=== PATIENT | female | born 1990 ===

== ENCOUNTER 2022-09-26 19:05 | Emergency (ER) | payer SELFPAY ==
[2022-09-26 19:56] LABS: Absolute Lymphocytes (CBC) 0.8 K/uL (0.7-4.9); Hematocrit 40.1 % (36.0-45.0); Lymphocytes % 9.5 % (15.3-44.8); MCV 82.8 fL (80-100); RBC Red Blood Cell Count 4.84 M/uL (3.86-4.86)
[2022-09-26 20:16] LABS: Albumin 4.5 g/dL (3.4-5.0); Bilirubin Total 1.3 mg/dL (0.2-1.0); Potassium 3.4 mEq/L (3.5-5.1); Protein, Total 8.8 g/dL (6.4-8.2); Thyroid Stimulating Hormone 3.46 uIU/mL (0.358-3.740)
[2022-09-26] MEDS ORDERED: NA CHLORIDE 0.9% 1,000 ML ONE ×2 (20:24→20:47)
[2022-09-26] MEDS ORDERED: PROPRANOLOL HCL 40 MG TAB ONE (21:03)
--- NOTE | 2022-09-26 22:11 | ER ---
Nurse's Notes [facility] Name: Viviana Mancilla Age: 32 yrs Sex: Female : 1990 Arrival Date: 09/26/2022 Time: 19:05 Bed 19 Private MD: Diagnosis: Dehydration;Adverse effect of other psychotropic drugs;Other stimulant abuse with stimulant-induced anxiety disorder Presentation: 09/26 19:07 Chief complaint: Patient states: Chest pain, started yesterday with numbness and jw7 tingling to left arm. pt admits to doing cocaine last night and is worried it was laced with fentanyl. Coronavirus screen: At this time, the client does not indicate any symptoms associated with coronavirus-19. Ebola Screen: No symptoms or risks identified at this time. Initial Sepsis Screen: Does the patient meet any 2 criteria? RR > 20 per min. HR > 90 bpm. Does the patient have a suspected source of infection? No. Patient's initial sepsis screen is negative. Initial Sepsis Screen: Does the patient meet any 2 criteria?. Risk Assessment: Do you want to hurt yourself or someone else? Patient reports no desire to harm self or others. Onset of symptoms was September 25, 2022. 19:07 Method Of Arrival: Wheelchair jw7 19:07 Acuity: TRAM 2 jw7 Triage Assessment: 19:10 General: Appears distressed, Behavior is anxious, restless. Pain: Complains of pain in as6 chest. Cardiovascular: Rhythm is sinus tachycardia. Respiratory: Respiratory pattern is hyperventilation. 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 - Social history:: Smoking status: Patient/guardian denies using tobacco, Patient uses street drugs, cocaine. Screenin:50 [facility] ED Fall Risk Assessment (Adult) History of falling in the last 3 months, ha1 including since admission No falls in past 3 months (0 pts) Confusion or Disorientation No (0 pts) Intoxicated or Sedated No (0 pts) Impaired Gait No (0 pts) Mobility Assist Device Used No (0 pt) Altered Elimination No (0 pt) Score/Fall Risk Level 0 - 2 = Low Risk Oriented to surroundings, Maintained a safe environment, Educated pt \T\ family on fall prevention, incl call for assistance when getting out of bed, Hourly rounding (assess needs \T\ fall precautionary measures) done. Abuse screen: Denies threats or abuse. Denies injuries from another. Nutritional screening: No deficits noted. Tuberculosis screening: No symptoms or risk factors identified. Assessment: 19:37 General: Appears uncomfortable, Behavior is cooperative, anxious. Pain: Complains of ha1 pain in chest Pain does not radiate. Pain currently is 5 out of 10 on a pain scale. Quality of pain is described as pressure, Pain began 2 hours ago. Neuro: Level of Consciousness is awake, alert, obeys commands, Oriented to person, place, time, situation. Cardiovascular: Reports palpitations, Heart tones S1 S2 present Patient's skin is warm and dry. Rhythm is sinus tachycardia. Respiratory: Airway is patent Respiratory effort is even, unlabored, Respiratory pattern is regular, symmetrical. GI: No signs and/or symptoms were reported involving the gastrointestinal system. : No signs and/or symptoms were reported regarding the genitourinary system. Musculoskeletal: Circulation, motion, and sensation intact. Range of motion: intact in all extremities. 20:35 Reassessment: Patient and/or family updated on plan of care and expected duration. Pain ha1 level reassessed. Patient is alert, oriented x 3, equal unlabored respirations, skin warm/dry/pink. 21:35 Reassessment: Patient and/or family updated on plan of care and expected duration. Pain ha1 level reassessed. Patient is alert, oriented x 3, equal unlabored respirations, skin warm/dry/pink. Vital Signs: 19:07 BP 156 / 105; Pulse 126; Resp 24 S; Temp 97.7; Pulse Ox 100% on R/A; Weight 58.06 kg; jw7 Height 5 ft. 2 in. ; Pain 9/10; 19:50 BP 140 / 85; Pulse 110; Resp 20 S; Pulse Ox 100% on R/A; ha1 20:29 BP 133 / 87; Pulse 107; Resp 18 S; Pulse Ox 95% on R/A; ha1 21:23 BP 144 / 92; Pulse 93; Resp 18 S; Pulse Ox 100% on R/A; ha1 19:07 Body Mass Index 23.41 (58.06 kg, 157.48 cm) jw7 19:07 Pain Scale: Adult jw7 ED Course: 19:06 Patient arrived in ED. am2 19:14 Triage completed. jw7 19:16 Prisc[facility] Armstrong [facility]-C [facility]. snw 19:16 Yordan Harry MD is Attending Physician. snw 19:42 No provider procedures requiring assistance completed. Inserted saline lock: 20 gauge pf1 in left antecubital area, using aseptic technique. Blood collected. 19:46 TSH Sent. pf1 19:46 CMP Sent. pf1 19:46 CBC with Diff Sent. pf1 19:49 Arm band placed on. as6 19:50 Patient maintains SpO2 saturation greater than 95% on room air. ha1 19:50 Patient has correct armband on for positive identification. Placed in gown. Bed in low ha1 position. Call light in reach. Side rails up X 1. Adult w/ patient. 19:50 Client placed on continuous cardiac and pulse oximetry monitoring. NIBP monitoring ha1 applied. 20:00 Door closed. Warm blanket given. Pillow given. ha1 21:08 Eloisa Owens, RN is Primary Nurse. ha1 22:39 IV discontinued, intact, bleeding controlled, No redness/swelling at site. Pressure pf1 dressing applied. 22:40 Provided Education on: medication . pf1 Administered Medications: 20:20 Drug: NS 0.9% IV 1000 ml Route: IV; Rate: 1 bolus; Site: left antecubital; ha1 20:44 Drug: NS 0.9% IV 1000 ml Route: IV; Rate: 1 bolus; Site: left antecubital; ha1 20:50 Drug: Propranolol PO 40 mg Route: PO; ha1 22:13 Drug: Diazepam IVP 5 mg Route: IVP; Site: left antecubital; ha1 Medication: 21:48 VIS not applicable for this client. ha1 Outcome: 22:11 Discharge ordered by . snw 22:39 Discharged to home ambulatory, with family. pf1 22:39 Condition: improved 22:39 Discharge instructions given to patient, family, Instructed on discharge instructions, follow up and referral plans. Demonstrated understanding of instructions, follow-up care, medications, Prescriptions given X 1. 22:41 Patient left the ED. pf1 Signatures: Priscila Armstrong, FLEET SALES ASSOCIATE-C FLEET SALES ASSOCIATE-Csnw Meggan Cuello am2 Henrry Oliveira, RN RN as6 Shayy Tompkins RN RN jw7 Eloisa Owens, ANDRY RN ha1 Vero Strickland RN RN pf1 Corrections: (The following items were deleted from the chart) 19:48 19:07 Chief complaint: Patient states: Chest pain, started yesterday with numbness and as6 tingling to left arm. jw7
--- NOTE | 2022-09-26 22:11 | EDPHYS ---
Physician Documentation [facility] Name: Viviana Mancilla Age: 32 yrs Sex: Female : 1990 Arrival Date: 09/26/2022 Time: 19:05 Bed 19 Private MD: ED Physician Yordan Harry HPI: 09/26 19:28 This 32 yrs old Female presents to ER via Wheelchair with complaints of Chest Pain, snw Shortness Of Breath. 19:28 The patient presents with a history of heart racing. Context: The symptoms occur pt snw states she stopped Paxil last month post losing insurance. States she doesn't know why her palpitations started again, but pt then states she used Cocaine yesterday. States it must have been laced with something.. Onset: The symptoms/episode began/occurred suddenly, yesterday. Duration: The patient or guardian reports a single episode. Associated signs and symptoms: Pertinent positives: anxiety, lightheadedness, SOB, hyperventilation. Severity of symptoms: At their worst the symptoms were moderate. The patient has experienced similar episodes in the past. It is unknown whether or not the patient has recently seen a physician. 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 - Social history:: Smoking status: Patient/guardian denies using tobacco, Patient uses street drugs, cocaine. ROS: 19:28 Constitutional: Negative for fever, chills, positive 10# weight loss, Eyes: Negative snw for injury, pain, redness, and discharge, ENT: Negative for injury, pain, and discharge, Neck: Negative for injury, pain, and swelling. 19:28 Abdomen/GI: Negative for abdominal pain, nausea, vomiting, diarrhea, and constipation, Back: Negative for injury and pain, : Negative for injury, bleeding, discharge, and swelling, MS/Extremity: Negative for injury and deformity, Skin: Negative for injury, rash, and discoloration, Neuro: Negative for headache, weakness, numbness, tingling, and seizure. 19:28 Cardiovascular: Positive for chest pain, palpitations. 19:28 Respiratory: Positive for shortness of breath, at rest. hyperventilation. 19:28 Psych: Positive for anxiety. Exam: 19:31 Head/Face: Normocephalic, atraumatic. Eyes: Pupils equal round and reactive to light, snw extra-ocular motions intact. Lids and lashes normal. Conjunctiva and sclera are non-icteric and not injected. Cornea within normal limits. Periorbital areas with no swelling, redness, or edema. ENT: Nares patent. No nasal discharge, no septal abnormalities noted. Tympanic membranes are normal and external auditory canals are clear. Oropharynx with no redness, swelling, or masses, exudates, or evidence of obstruction, uvula midline. Mucous membranes moist. Neck: Trachea midline, no thyromegaly or masses palpated, and no cervical lymphadenopathy. Supple, full range of motion without nuchal rigidity, or vertebral point tenderness. No Meningismus. Chest/axilla: Normal chest wall appearance and motion. Nontender with no deformity. No lesions are appreciated. 19:31 Abdomen/GI: Soft, non-tender, with normal bowel sounds. No distension or tympany. No guarding or rebound. No evidence of tenderness throughout. Back: No spinal tenderness. No costovertebral tenderness. Full range of motion. Skin: Warm, dry with normal turgor. Normal color with no rashes, no lesions, and no evidence of cellulitis. MS/ Extremity: Pulses equal, no cyanosis. Neurovascular intact. Full, normal range of motion. Neuro: Awake and alert, GCS 15, oriented to person, place, time, and situation. Cranial nerves II-XII grossly intact. Motor strength 5/5 in all extremities. Sensory grossly intact. Cerebellar exam normal. Normal gait. 19:31 Constitutional: The patient appears alert, anxious, restless. 19:31 Cardiovascular: Rate: tachycardic, Rhythm: regular. 19:31 Respiratory: the patient does not display signs of respiratory distress, Respirations: shallow respirations, tachypnea, Breath sounds: are clear throughout. 19:31 Psych: Behavior/mood is anxious, Affect is animated, Oriented to person, place, time. Vital Signs: 19:07 BP 156 / 105; Pulse 126; Resp 24 S; Temp 97.7; Pulse Ox 100% on R/A; Weight 58.06 kg; jw7 Height 5 ft. 2 in. ; Pain 9/10; 19:50 BP 140 / 85; Pulse 110; Resp 20 S; Pulse Ox 100% on R/A; ha1 20:29 BP 133 / 87; Pulse 107; Resp 18 S; Pulse Ox 95% on R/A; ha1 21:23 BP 144 / 92; Pulse 93; Resp 18 S; Pulse Ox 100% on R/A; ha1 19:07 Body Mass Index 23.41 (58.06 kg, 157.48 cm) 7 19:07 Pain Scale: Adult jw7 MDM: 19:16 Patient medically screened. snw 19:27 Differential diagnosis: viral Infection, bacterial infection, substance abuse. Data snw reviewed: vital signs, nurses notes, lab test result(s), EKG. I considered the following discharge prescriptions or medication management in the emergency department Medications were administered in the Emergency Department. See MAR. Counseling: I had a detailed discussion with the patient and/or guardian regarding: the historical points, exam findings, and any diagnostic results supporting the discharge/admit diagnosis, the presence of at least one elevated blood pressure reading (>120/80) during this emergency department visit, lab results, the need for outpatient follow up. Special discussion: Cocaine abuse. 19:32 Differential diagnosis: arrythmia, dehydration, stress disorder, drug abuse. Historians snw other than the Patient: Spouse/Significant Other: Male significant other. 22:08 ED course: Pt paranoid, insists that she would like to leave as we have spoken poorly snw about her and have called the police on her. Offered valium IV s/p drug ingestion and paranoia from yesterday. Pt states she does not want us to give her anything else and wants to leave. 09/26 19:27 Order name: CBC with Diff; Complete Time: 20:02 snw 09/26 19:27 Order name: CMP; Complete Time: 20:17 snw 09/26 19:27 Order name: TSH; Complete Time: 20:17 snw 09/26 20:16 Order name: EKG; Complete Time: 20:17 snw 09/26 20:16 Order name: EKG - Nurse/Tech; Complete Time: 20:29 snw 09/26 21:22 Order name: Recheck Vital Signs; Complete Time: 21:22 snw EC:31 Rate is 125 beats/min. Rhythm is regular. QRS [place] is Normal. [place] interval is normal. snw QRS interval is normal. QT interval is normal. No Q waves. T waves are Normal. Clinical impression: Sinus tachycardia. Administered Medications: 20:20 Drug: NS 0.9% IV 1000 ml Route: IV; Rate: 1 bolus; Site: left antecubital; ha1 20:44 Drug: NS 0.9% IV 1000 ml Route: IV; Rate: 1 bolus; Site: left antecubital; ha1 20:50 Drug: Propranolol PO 40 mg Route: PO; ha1 22:13 Drug: Diazepam IVP 5 mg Route: IVP; Site: left antecubital; ha1 Disposition Summary: 09/26/22 22:11 Discharge Ordered Location: Home snw Condition: Stable snw Diagnosis - Dehydration snw - Adverse effect of other psychotropic drugs snw - Other stimulant abuse with stimulant-induced anxiety disorder snw Followup: snw - With: Emergency Department - When: As needed - Reason: Worsening of condition Followup: snw - With: Private Physician - When: Tomorrow - Reason: Recheck today's complaints, Continuance of care, Re-evaluation by your physician Discharge Instructions: - Discharge Summary Sheet snw - Cocaine Use Disorder snw - Dehydration, Adult snw - Substance Use Disorder snw - Rehydration, Adult snw Forms: - Medication Reconciliation Form snw - Thank You Letter snw - Antibiotic Education snw - Prescription Opioid Use snw - Patient Portal Instructions snw Prescriptions: - Propranolol 20 mg Oral Tablet - take 1 tablet by ORAL route every 6 hours; 20 tablet; Refills: 0, Product snw Selection Permitted Addendum: 09/30/2022 10:53 Co-signature as Attending Physician, Yordan Harry MD I reviewed the patient's care r n provided by the Advanced Practice Provider and agree with the diagnosis and treatment plan. Signatures: Dispatcher [employer] Priscila Lundberg, AFTERNOON BABYSITTER-C AFTERNOON BABYSITTER-Csnw Yordan Harry MD MD rn Waits, Jodi, RN RN jw7 Eloisa Owens RN RN ha1
[2022-09-26] MEDS ORDERED: DIAZEPAM 10 MG/2 ML INJ SYRINGE ONE (22:20)
[2022-09-26 23:17] VITALS: TEMP 97.7
[2022-09-26 23:22] VITALS: BP 144/92; O2SAT 100
--- NOTE | 2022-09-30 13:15 | EKG ---
Test Date: 2022-09-26 Test Time: 19:12:22 Sales Analytics Manager: MEASUREMENT RESULTS: Intervals: Rate: 125 NV: 120 QRSD: 68 QT: 308 QTc: 444 [place]: P: 61 NV: 120 QRS: 70 T: 40 INTERPRETIVE STATEMENTS: Sinus tachycardia Otherwise normal ECG No previous ECG available for comparison Electronically Signed On 09-30-22 13:10:05 CDT by Alejandro Ayala
== END 2022-09-26 22:41 | disposition home or self-care (01) ==
LOC: ER 19:05
DX: E86.0 Dehydration (principal); T43.8X5A Adverse effect of other psychotropic drugs, initial encounter; F15.180 Other stimulant abuse with stimulant-induced anxiety disorder
CPT/HCPCS: 36415; 80053; 84443; 85025; 93005; 96374; 99285; J3360; J7030